=== PATIENT | male | born 1950 | race Caucasian/White ===

== ENCOUNTER 2021-12-03 15:51 | Emergency (ER) | payer MEDICARE, OTHER ==
[~2021-12-03] VITALS: Ht 177.8 cm; Wt 109.0 kg
[2021-12-03 15:55] VITALS: BP 124/66
== END 2021-12-03 17:04 | disposition left against medical advice (07) ==
LOC: ER 15:51
DX: R53.1 Weakness (principal)
CPT/HCPCS: 99281